=== PATIENT | male | born 1970 | race African-American/Black ===

== ENCOUNTER 2017-05-13 18:18 | Emergency (ER) | payer MEDICAID ==
[~2017-05-13] VITALS: Ht 182.9 cm; Wt 109.0 kg
[2017-05-13 18:38] VITALS: BP 124/87
== END 2017-05-13 23:00 | disposition left against medical advice (07) ==
LOC: ER 22:40
DX: K12.2 Cellulitis and abscess of mouth (principal); Z53.21 Procedure and treatment not carried out due to patient leaving prior to being seen by health care provider